=== PATIENT | male | born 1960 | race Caucasian/White ===

== ENCOUNTER → 2019-08-22 | Outpatient (CLI) | payer OTHER ==
--- NOTE | 2019-08-22 15:52 | Diagnostic Imaging Report ---
Abdomen, 1 view. History: Stones. Comparison: CT abdomen 11/23/2018. Findings: Air is scattered throughout nondilated small and large bowel. A 3 mm calcific density is projected over the left kidney. The osseous structures are intact. IMPRESSION: Non-specific bowel gas pattern. Small left renal calculus. Signed by: Narayan William on 08/22/2019 3:48 PM
== END ==
LOC: RAD 14:54
PROVIDERS: ATTEND Urology
DX: N20.0 Calculus of kidney (principal)
CPT/HCPCS: 74018